=== PATIENT | female | born 1945 | race Caucasian/White ===

== ENCOUNTER 2024-03-23 09:30 | Emergency (ER) | payer BC, MEDICARE ==
[~2024-03-23] VITALS: Ht 162.6 cm; Wt 62.8 kg
[2024-03-23 11:18] VITALS: BP 150/93; TEMP 97.5; O2SAT 98
[2024-03-23] MEDS: CYCLOBENZAPRINE 10MG TABLET PO ONE (15:24)
[2024-03-23] MEDS: KETOROLAC 30 MG/ML 1ML VIAL IM ONE (15:25)
[2024-03-23] MEDS ORDERED: GABA-284 PO (16:02)
== END 2024-03-23 16:12 | disposition home or self-care (01) ==
LOC: M ED 09:30
DX: M54.50 Low back pain, unspecified (principal); I10 Essential (primary) hypertension; Z79.899 Other long term (current) drug therapy
CPT/HCPCS: 96372; 99283; J1885